=== PATIENT | male | born 1965 | race Caucasian/White ===

== ENCOUNTER 2017-11-14 11:30 | Outpatient (CLI) | payer BC ==
--- NOTE | 2017-11-12 10:38 | HISTORY AND PHYSICAL ---
DATE OF SERVICE: COLONOSCOPY HISTORY AND PHYSICAL HISTORY OF PRESENT ILLNESS: The patient is a 52-year-old white male referred for screening colonoscopy by Dr. Garcia. He is deemed to be of higher than average risk as his father was diagnosed with colon cancer around the age of 65 and he has one brother who has had history of colon polyps. He underwent his first screening colonoscopy 5 years ago at which time, he had hyperplastic polyp removed. No evidence for adenomatous colonic polyps were noted at that time. He denies any problems with bowel habit change. He has noted no blood in his stool and denies abdominal pain. He has cut down significantly on carbohydrates and reports a 55-pound weight loss as a result of this over the past year. PAST MEDICAL HISTORY: History of elevated PSA for which he underwent prostate biopsy per Dr. Valdes in 2017,which revealed no evidence for malignancy at that time. He has a history of obstructive sleep apnea on CPAP therapy and history of hypertension as well as mild anxiety, but he feels well controlled on Bupropion. MEDICATIONS ON ADMISSION: Include: 1. Aleve p.r.n. musculoskeletal pain. 2. Multiple vitamin daily. 3. Lisinopril 20 mg daily. 4. Bupropion XL 150 mg daily. ALLERGIES: He reports no known medical allergies. PAST SURGICAL HISTORY: He has had arthroscopic surgery of the left knee 7 or 8 years ago and has had removal of an ingrown toenail. Reporting no other surgical procedures. FAMILY HISTORY: Pertinent for father diagnosed with colon cancer at the age of 65. His older brother at age of 49 had several reported adenomatous colonic polyps removed. There is no other history for reported malignancy or a GI tract malignancy. 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 PHYSICAL EXAMINATION: GENERAL: Reveals a pleasant white male who appears to be in no acute distress. VITAL SIGNS: Weight of 212.2 pounds, is down 34 pounds from his office weight 5 years ago. Blood pressure 112/70. HEENT: Unremarkable. Sclerae nonicteric. He has a Mallampati class 3 oropharyngeal configuration. Pharynx reveals no evidence for erythema. NECK: Revealed no JVD, adenopathy or bruits. CHEST: Clear to auscultation. CARDIOVASCULAR: Reveals regular rate and rhythm without murmur, S3 or S4. ABDOMEN: Soft, supple without mass, organomegaly or tenderness. Bowel sounds are present and normoactive. EXTREMITIES: Reveal no cyanosis, clubbing or edema. Rectal evaluation was deferred to the time of colonoscopy, which has been set up on 11/15/2017. The patient was seen in the office 11/07/2017. ASSESSMENT: The patient is set up for screening colonoscopy deemed to be of higher than average risk as his father was diagnosed with colon cancer at the age of 65 and he has had one brother with colonic polyps on his first colonoscopy. Prep instructions and Suprep kit were given and questions were answered. The patient's electronic medical record was reviewed, 45 minutes of my direct care time was spent with another 15 minutes of staff time setting up the procedure and going over prep instructions. I thank you for the referral of this pleasant gentleman. Job ID: [id number] DocumentID: [id number] Dictated Date: 11/12/2017 09:44:22 Tub Washer Date: 11/12/2017 10:37:35 Dictated By: ISACC BARFIELD MD MTDD
[~2017-11-14] VITALS: Ht 177.8 cm; Wt 95.7 kg
[~2017-11-14 11:30] MED LIST: BUPR150T6 PO; HYDR-3720 PO; IBP200T PO
[2017-11-14] MEDS ORDERED: MULT-35 PO (11:52)
[2017-11-14] MEDS ORDERED: LISI-552 PO (11:52)
[2017-11-14] MEDS ORDERED: BUPR150T9 PO (11:52)
== END 2017-11-14 11:57 | disposition home or self-care (01) ==
LOC: PREOP 11:30
PROVIDERS: ATTEND Internal Medicine
DX: Z01.818 Encounter for other preprocedural examination (principal)

== ENCOUNTER 2017-11-15 08:53 | Day surgery (SDC) | payer BC ==
[~2017-11-15] VITALS: Ht 177.8 cm; Wt 95.7 kg
[~2017-11-15 08:53] MED LIST changes: +BUPR150T9 PO; +LISI-552 PO; +MULT-35 PO
--- OUTSIDE RECORDS SUMMARY | 2017-11-15 08:58 | XMS REPORT | Continuity of Care Document ---
Author Author [facility] Organization [facility] Address Unknown Phone Unavailable Allergies There is no data. Medications There is no data. Problems There is no data. Procedures There is no data. Results There is no data. Encounters ACCT No. Visit Date/Time Discharge Status Pt. Type Provider Facility Loc./Unit Complaint [id number] 09/23/2012 07:10:00 09/23/2012 10:15:00 DIS Outpatient [id number] 09/18/2012 07:17:00 09/18/2012 23:59:59 CLS Outpatient
--- OUTSIDE RECORDS SUMMARY | 2017-11-15 08:58 | XMS REPORT | Continuity of Care Document ---
Author Author [facility] Organization [facility] Address Unknown Phone Unavailable Care Team Providers Care Insight Director Name Role Phone ROS NINA DO PP Insurance Providers Payer Name Policy Number Subscriber Name Relationship [facility] [id number] Tiki Orourke 01 Self / Same As Patient Advance Directives Directive Response Recorded Date Advance Directives N 09/23/12 7:15am Problems No Known Problems or Medical conditions. Allergies, Adverse Reactions, Alerts Allergen Type Severity Reaction Last Updated No Known Drug Allergies 09/23/12 Medications Medication Dose Units Route Sig Qty Days Bupropion HCl (Wellbutrin Xl) 150 Mg PO DAILY Acetaminophen/Hydrocodone Bitart (Hydrocodone-Apap 10-325 Tablet) 0.5 - 1 Each PO Q 4 - 6 HRS PRN 20 Ibuprofen (Motrin) 1 - 2 Each PO QID PRN Response Recorded Date/Time Status not known Unknown Results No Known Relevant Diagnostic Tests, Laboratory Data and/or Discharge Summary. Encounters Encounter Location Date/Time Departed Emergency Room [facility] 21/03 8:25am
[2017-11-15] MEDS ORDERED: D5 LR IV SOLUTION 1,000 ML IV ONE (09:01)
[2017-11-15 09:15] VITALS: BP 104/71
[2017-11-15] MEDS ORDERED: MIDAZOLAM 2 MG/2 ML (VERSED) VIAL IVP PRN (09:15)
[2017-11-15] MEDS ORDERED: D5 LR IV SOLUTION 1,000 ML IV PRN (09:15)
[2017-11-15] MEDS ORDERED: LIDOCAINE JELLY 2% (XYLOCAINE) 5 ML TUBE MM PRN (09:15)
[2017-11-15] MEDS ORDERED: fentaNYL INJECTION 100 MCG/2 ML AMP ONE (09:33)
[2017-11-15] MEDS ORDERED: MIDAZOLAM 2 MG/2 ML (VERSED) VIAL ONE ×2 (09:33)
[2017-11-15] MEDS ORDERED: LIDOCAINE JELLY 2% (XYLOCAINE) 5 ML TUBE ONE (09:33)
[2017-11-15] MEDS: fentaNYL INJECTION 100 MCG/2 ML AMP IVP PRN ×2 (10:04→10:07)
--- NOTE | 2017-11-15 10:04 | Pre-Op Note & Conscious Sedat ---
Pre-Operative Progress Note H&P Reviewed The H&P was reviewed, patient examined and no changes noted. Date H&P Reviewed: Nov 15, 2017 Time H&P Reviewed: 09:50 Conscious Sedation Pre-Proced ASA Class: 2 Airway Mallampati Classification: (chilkat appropriate class) I. II. III, IV Lungs Heart ASA score ASA 1: a normal healthy patient ASA 2: a patient with a mild systemic disease (mid diabetes, controlled hypertension, obesity ASA 3: a patient with a severe systemic disease that limits activity (angina , COPD, prior Myocardial infarction) ASA 4: a patient with an incapacitating disease that is a constant threat to life (CHF, renal failure) ASA 5: a moribund patient not expected to survive 24 hrs. (ruptured aneurysm) ASA 6: a declared brain patient whose organs are being harvested. For emergent operations, add the letter E after the classification Grade 3 Sedation Plan: Analgesia, Amnesia, Plan communicated to team members, Discussed options with patient/fam, Discussed risks with patient/fam Note The patient is an appropriate candidate to undergo the planned procedure, sedation, and anesthesia. The patient immediately re-assessed prior to indication. ISACC BARFIELD MD Nov 15, 2017 10:04
[2017-11-15 10:35] VITALS: BP 104/66
[2017-11-15 11:00] VITALS: BP 102/69
[2017-11-15 11:10] VITALS: BP 102/69
--- NOTE | 2017-11-15 18:23 | OPERATIVE REPORT ---
DATE OF SERVICE: 11/15/2017 COLONOSCOPY SUMMARY INDICATION FOR THE PROCEDURE: Screening colonoscopy. DESCRIPTION OF PROCEDURE: The patient was placed in the left lateral decubitus position. Prior to undergoing colonoscopy, digital rectal evaluation was performed. Anal sphincter tone was normal and the perianal reflex was intact. Prostate is normal in size, anodular, nontender to digital inspection. No abnormalities on digital inspection of the anal canal or distal rectal vault. The colonoscope was then inserted into the rectum and under direct visualization advanced to the cecum. Careful inspection was made as the colonoscope was withdrawn. FINDINGS: There was no evidence for internal or external hemorrhoids and the rectum was unremarkable. Several small sigmoid diverticulum were present without evidence for diverticulitis. No other sigmoid colonic abnormalities were appreciated. The descending colon, transverse colon, hepatic flexure, ascending colon and cecum were unremarkable. ASSESSMENT: No evidence for neoplasia was identified on today's procedure. Considering family history, I would advocate consideration for repeat screening colonoscopy in 5 years. Several small sigmoid diverticulum were present with no other abnormalities being noted on today's procedure. I thank you for the referral of this pleasant gentleman. Sincerely, Job ID: [id number] DocumentID: [id number] Dictated Date: 11/15/2017 11:47:30 Freight Service Inspector Date: 11/15/2017 18:22:28 Dictated By: ISACC BARFIELD MD
== END 2017-11-15 11:30 | disposition home or self-care (01) ==
LOC: ENDO 08:53
PROVIDERS: ATTEND Internal Medicine
DX: Z12.11 Encounter for screening for malignant neoplasm of colon (principal); K57.30 Diverticulosis of large intestine without perforation or abscess without bleeding; Z87.19 Personal history of other diseases of the digestive system; Z80.0 Family history of malignant neoplasm of digestive organs; I10 Essential (primary) hypertension; G47.33 Obstructive sleep apnea (adult) (pediatric)